=== PATIENT | male | born 1970 | race Caucasian/White ===

== ENCOUNTER 2019-07-27 07:57 | Day surgery (SDC) | payer OTHER ==
[~2019-07-27 07:57] MED LIST: KETOROLAC TROMETHAMINE 0.45% 4 DROP/0.4 ML DROPERETTE OS PRN
[2019-07-27] MEDS: TROPICAMIDE 1% OPH SOLN 15 ML OS PRN ×3 (08:19→08:39)
[2019-07-27] MEDS: BESIFLOXACIN HCL 0.6% OPH SUSP 5 ML BOTTLE OS PRN ×4 (08:19→09:44)
[2019-07-27] MEDS: CYCLOPENTOLATE 0.2%/PHENYLEPHRINE 1% OPH SOLN 2 ML OS PRN ×3 (08:19→08:39)
[2019-07-27] MEDS: TETRACAINE HCL 0.5% OPH SOLN 4 ML OS PRN ×3 (08:20→08:53)
[2019-07-27] MEDS ORDERED: FENTANYL CITRATE INJ/PF 100 MCG/2 ML AMPUL ONE (08:41)
[2019-07-27] MEDS ORDERED: MIDAZOLAM 2 MG/2 ML INJ ONE (08:41)
[2019-07-27] MEDS ORDERED: ONDANSETRON HCL INJ/PF 4 MG/2 ML SDV ONE (08:41)
[2019-07-27] MEDS: CHONDR SU A NA/HYALUR INTRAOC KIT (SURGICARE) ONE ×2 (09:08)
[2019-07-27] MEDS: EPINEPHRINE INJ/PF 1 MG/1 ML AMPULE ONE ×2 (09:08)
[2019-07-27] MEDS: LIDOCAINE 1%/PHENYLEPHRINE 1.5% 1 ML VIAL ONE ×2 (09:08)
[2019-07-27] MEDS ORDERED: POVIDONE-IODINE 5% OPH PREP SOLN 30 ML ONE (09:22)
[2019-07-27] MEDS: DORZOLAMIDE HCL 2%/TIMOLOL MALEAT 0.5% OPH SOLN 10 ML OS PRN ×2 (09:44)
[2019-07-27] MEDS ORDERED: PROPOFOL INJ 200 MG/20 ML VIAL IV ONE (12:09)
--- NOTE | 2019-07-28 07:42 | Operative Report ---
Operative Report-[facility] Operative Report: DATE OF SURGERY: 07/27/2019 PREOPERATIVE DIAGNOSIS: Cataracts, left eye POSTOPERATIVE DIAGNOSIS: Cataract, left eye OPERATION: Cataract extraction with insertion of an toric IOL of the left eye. Intraocular Lens Model: [18.5 sn6AT5 rotated to 60 degrees] Reason for surgery was difficulty seeing at night secondary to glare from headlights SURGEON: Kirk Torres MD ANESTHESIA: Topical PROCEDURE: After obtaining appropriate consent, the patient's left eye was prepped and draped in a sterile fashion as well as the surgeon in the sterile manner and cataract surgery was started. First a paracentesis blade was used to make a side-port incision. Viscoelastic was used to inflate the anterior chamber. Next a 2.4 mm incision was made with a 2.4 mm blade, clear corneal temporarily. A continuous capsulorrhexis was made using a cystotome and Utrata forceps. Following this hydrodissection was carried out to make commands fully loose and mobile and it was rotated 90 degrees. Following this, a divide and conquer technique was used to phacoemulsify the lens. The remaining cortex was removed with an irrigation/aspiration. Provisc was instilled into the capsular bag to inflate the bag.The intracular lens was placed. The remaining viscoelastic material was removed with irrigation/aspiration. Following this, the incision was found to be watertight. Besivance and Cosopt was instilled into the eye and a protective shield was placed over the eye. The patient was turned to the postoperative recovery in a stable condition.
== END 2019-07-27 10:30 | disposition home or self-care (01) ==
LOC: SC 07:57
PROVIDERS: ATTEND Internal Medicine
DX: H25.89 Other age-related cataract (principal); H04.123 Dry eye syndrome of bilateral lacrimal glands; I10 Essential (primary) hypertension
CPT/HCPCS: 66984; 00142; V2787; J2250; J3490 ×3; J0171; J3010; J2405; J2704; J2370; 142

== ENCOUNTER 2019-09-02 07:54 | Day surgery (SDC) | payer OTHER ==
[~2019-09-02 07:54] MED LIST changes: +KETOROLAC TROMETHAMINE 0.45% 4 DROP/0.4 ML DROPERETTE OD PRN; -KETOROLAC TROMETHAMINE 0.45% 4 DROP/0.4 ML DROPERETTE OS PRN
[2019-09-02] MEDS: CYCLOPENTOLATE 0.2%/PHENYLEPHRINE 1% OPH SOLN 2 ML OD PRN ×3 (08:25→08:45)
[2019-09-02] MEDS: TROPICAMIDE 1% OPH SOLN 15 ML OD PRN ×3 (08:25→08:45)
[2019-09-02] MEDS: TETRACAINE HCL 0.5% OPH SOLN 4 ML OD PRN ×3 (08:25→09:05)
[2019-09-02] MEDS: BESIFLOXACIN HCL 0.6% OPH SUSP 5 ML BOTTLE OD PRN ×5 (08:25→09:38)
[2019-09-02] MEDS ORDERED: FENTANYL CITRATE INJ/PF 100 MCG/2 ML AMPUL ONE (09:14)
[2019-09-02] MEDS ORDERED: MIDAZOLAM 2 MG/2 ML INJ ONE (09:14)
[2019-09-02] MEDS: CHONDR SU A NA/HYALUR INTRAOC KIT (SURGICARE) ONE ×2 (09:23)
[2019-09-02] MEDS: EPINEPHRINE INJ/PF 1 MG/1 ML AMPULE ONE ×2 (09:23)
[2019-09-02] MEDS: LIDOCAINE 1%/PHENYLEPHRINE 1.5% 1 ML VIAL ONE ×2 (09:23)
[2019-09-02] MEDS: DORZOLAMIDE HCL 2%/TIMOLOL MALEAT 0.5% OPH SOLN 10 ML OD PRN ×3 (09:37→09:38)
--- NOTE | 2019-09-02 13:15 | Operative Report ---
Operative Report-[facility] Operative Report: DATE OF SURGERY: 09/02/2019 PREOPERATIVE DIAGNOSIS: Cataract, right eye POSTOPERATIVE DIAGNOSIS: Cataract, right eye OPERATION: Cataract extraction with insertion of an toric IOL of the right eye. Intraocular Lens Model: [18.5 sn6at3 rotated to 140 degrees] Reason for surgery was a difficulty with imbalance between both eyes SURGEON: Kirk Torres MD ANESTHESIA: Topical PROCEDURE: After obtaining appropriate consent, the patient's right eye was prepped and draped in a sterile fashion as well as the surgeon in the sterile manner and cataract surgery was started. First a paracentesis blade was used to make a side-port incision. Viscoelastic was used to inflate the anterior chamber. Next a 2.4 mm incision was made with a 2.4 mm blade, clear corneal temporarily. A continuous capsulorrhexis was made using a cystotome and Utrata forceps. Following this hydrodissection was carried out to make the lynsey fully loose and mobile and it was rotated. Following this, a divide and conquer technique was used to phacoemulsify the lynsey. The remaining cortex was removed with an irrigation/aspiration. Provisc was instilled into the capsular bag to inflate the bag. The intraocular lens was placed. The remaining viscoelastic material was removed with irrigation/aspiration. Following this, the incision was found to be watertight. Besivance and Cosopt was instilled into the eye and a protective shield was placed over the eye. The patient was reurned to the postoperative recovery in a stable condition.
== END 2019-09-02 10:17 | disposition home or self-care (01) ==
LOC: SC 07:54
PROVIDERS: ATTEND Internal Medicine
DX: H25.89 Other age-related cataract (principal); Z96.1 Presence of intraocular lens; I10 Essential (primary) hypertension; E07.9 Disorder of thyroid, unspecified
CPT/HCPCS: 66984; 00142; V2787; J2250; J3490 ×2; J0171; J3010; J2370; 142